=== PATIENT | female | born 1990 | race African-American/Black ===

== ENCOUNTER 2017-01-31 12:05 | Emergency (ER) | payer MEDICAID, OTHER ==
[~2017-01-31] VITALS: Ht 154.9 cm; Wt 82.0 kg
[2017-01-31] MEDS ORDERED: SODIUM CHLORIDE 0.9% 1,000 ML IV ONE (12:57)
[2017-01-31] MEDS ORDERED: ONDANSETRON 4MG ODT PO STA (12:57)
[2017-01-31] MEDS ORDERED: ACETAMINOPHEN 325MG TABLET PO ONE (13:15)
[2017-01-31 13:17] LABS: BASOPHILS % 0.8 % (0.0-2.0); EOSINOPHILS % 1.7 % (0.0-5.0); HEMATOCRIT. 39.7 % (36.0-48.0); HEMOGLOBIN. 13.1 g/dL (12.0-16.0); LYMPHOCYTES % 27.6 % (20.0-50.0); MEAN CORPUSCULAR HEMOGLOBIN 27.3 pg (28.0-32.0); MEAN CORPUSCULAR VOLUME 82.8 fL (81.0-99.0); MEAN PLATELET VOLUME 8.3 fl (7.4-10.4); NEUTROPHILS % 61.9 % (40.0-76.0); PLATELET 224 x1000/uL (130-400); RED CELL DISTRIBUTION WIDTH 12.5 % (11.6-14.6)
[2017-01-31 13:36] LABS: CARBON DIOXIDE 30 mEq/L (21-32); CHLORIDE 106 mEq/L (98-107)
[2017-01-31 13:45] LABS: B-HCG QUANTITATIVE 1615 mIU/mL (<3)
[2017-01-31 16:55] VITALS: BP 138/99
== END 2017-01-31 17:00 | disposition home or self-care (01) ==
LOC: ER 12:37
DX: O20.0 Threatened abortion (principal); O21.9 Vomiting of pregnancy, unspecified; R51 Headache; Z3A.01 Less than 8 weeks gestation of pregnancy
CPT/HCPCS: 36415; 76801; 76817; 80048; 84702; 85025; 86850; 86900; 86901; 96360; 96361; 99285; Q0162; Z7610; J7030

== ENCOUNTER 2017-02-01 08:07 | Emergency (ER) | payer MEDICAID, OTHER ==
[~2017-02-01] VITALS: Ht 157.5 cm; Wt 82.2 kg
[2017-02-01 09:04] LABS: GLUCOSE URINE NEGATIVE (NEGATIVE); KETONES URINE NEGATIVE (NEGATIVE); LEUKOCYTE ESTERASE URINE NEGATIVE (NEGATIVE); NITRITE URINE NEGATIVE (NEGATIVE); OCCULT BLOOD URINE 3+ (NEGATIVE); PROTEIN URINE NEGATIVE (NEGATIVE); SPECIFIC GRAVITY URINE 1.009 (1.005-1.030); UROBILINOGEN URINE 0.2 E.U./dL (0.2-1.0)
[2017-02-01 09:07] LABS: CLARITY URINE CLEAR (CLEAR); COLOR URINE YELLOW (YELLOW)
[2017-02-01] MEDS ORDERED: ACETAMINOPHEN 500MG TABLET PO ONE (09:15)
[2017-02-01 09:17] LABS: BASOPHILS % 0.7 % (0.0-2.0); EOSINOPHILS % 2.3 % (0.0-5.0); HEMOGLOBIN. 12.3 g/dL (12.0-16.0); LYMPHOCYTES % 25.6 % (20.0-50.0); MEAN CORPUSCULAR VOLUME 83.7 fL (81.0-99.0); MEAN PLATELET VOLUME 8.8 fl (7.4-10.4); MONOCYTES % 6.7 % (2.0-8.0); NEUTROPHILS % 64.7 % (40.0-76.0); PLATELET 199 x1000/uL (130-400); RED BLOOD CELL COUNT 4.54 mill/uL (4.2-5.4); RED CELL DISTRIBUTION WIDTH 12.6 % (11.6-14.6)
[2017-02-01 09:26] LABS: CARBON DIOXIDE 28 mEq/L (21-32); CHLORIDE 106 mEq/L (98-107)
[2017-02-01 09:32] LABS: B-HCG QUANTITATIVE 616 mIU/mL (<3)
[2017-02-01 11:00] VITALS: BP 135/90
== END 2017-02-01 11:20 | disposition home or self-care (01) ==
LOC: ER 08:30
DX: O03.9 Complete or unspecified spontaneous abortion without complication (principal); O16.1 Unspecified maternal hypertension, first trimester; Z3A.01 Less than 8 weeks gestation of pregnancy
CPT/HCPCS: 36415; 80048; 81001; 81025; 84702; 85025; 86850; 86900; 99284

== ENCOUNTER 2017-02-12 12:02 | Emergency (ER) | payer MEDICAID, OTHER ==
[~2017-02-12] VITALS: Ht 154.9 cm; Wt 76.0 kg
[2017-02-12] MEDS ORDERED: ACETAMINOPHEN 325MG TABLET PO STA (12:28)
[2017-02-12] MEDS ORDERED: ONDANSETRON 4MG ODT PO ONE (12:30)
[2017-02-12 12:45] LABS: BASOPHILS % 0.7 % (0.0-2.0); EOSINOPHILS % 0.9 % (0.0-5.0); HEMATOCRIT. 40.3 % (36.0-48.0); HEMOGLOBIN. 13.2 g/dL (12.0-16.0); LYMPHOCYTES % 30.6 % (20.0-50.0); MEAN CORPUSCULAR HEMOGLOBIN 27.4 pg (28.0-32.0); MEAN PLATELET VOLUME 8.7 fl (7.4-10.4); MONOCYTES % 7.2 % (2.0-8.0); NEUTROPHILS % 60.6 % (40.0-76.0); PLATELET 241 x1000/uL (130-400); RED CELL DISTRIBUTION WIDTH 12.7 % (11.6-14.6)
[2017-02-12 12:53] LABS: HCG SCREEN INDETERMINATE
[2017-02-12 12:55] LABS: CARBON DIOXIDE 28 mEq/L (21-32); CHLORIDE 104 mEq/L (98-107)
[2017-02-12 14:00] VITALS: BP 146/98
== END 2017-02-12 15:28 | disposition home or self-care (01) ==
LOC: ER 12:03
DX: R10.9 Unspecified abdominal pain (principal); D25.9 Leiomyoma of uterus, unspecified; R11.2 Nausea with vomiting, unspecified; I10 Essential (primary) hypertension
CPT/HCPCS: 36415; 76830; 76856; 80048; 84702; 84703; 85025; 99285; Q0162; Z7610

== ENCOUNTER 2017-03-27 20:30 | Emergency (ER) | payer MEDICAID, OTHER ==
[~2017-03-27] VITALS: Ht 157.5 cm; Wt 64.0 kg
[2017-03-27 20:43] VITALS: BP 147/98
== END 2017-03-28 00:07 | disposition left against medical advice (07) ==
LOC: ER 20:30
DX: R10.9 Unspecified abdominal pain (principal); Z53.21 Procedure and treatment not carried out due to patient leaving prior to being seen by health care provider

== ENCOUNTER 2017-08-01 04:25 | Emergency (ER) | payer MEDICAID, OTHER ==
[~2017-08-01] VITALS: Ht 154.9 cm; Wt 80.0 kg
[2017-08-01 08:19] LABS: BASOPHILS % 0.6 % (0.0-2.0); EOSINOPHILS % 1.4 % (0.0-5.0); HEMATOCRIT. 38.9 % (36.0-48.0); HEMOGLOBIN. 12.8 g/dL (12.0-16.0); LYMPHOCYTES % 28.2 % (20.0-50.0); MEAN CORPUSCULAR HEMOGLOBIN 27.6 pg (28.0-32.0); MEAN CORPUSCULAR VOLUME 83.5 fL (81.0-99.0); MEAN PLATELET VOLUME 8.7 fl (7.4-10.4); MONOCYTES % 6.5 % (2.0-8.0); NEUTROPHILS % 63.3 % (40.0-76.0); PLATELET 231 x1000/uL (130-400); RED BLOOD CELL COUNT 4.66 mill/uL (4.2-5.4); RED CELL DISTRIBUTION WIDTH 12.5 % (11.6-14.6)
[2017-08-01 08:42] LABS: CARBON DIOXIDE 28 mEq/L (21-32); CHLORIDE 104 mEq/L (98-107)
[2017-08-01 08:49] LABS: B-HCG QUANTITATIVE 2194 mIU/mL (<3)
[2017-08-01 11:07] LABS: CLARITY URINE CLEAR (CLEAR); COLOR URINE DARK YELLOW (YELLOW); KETONES URINE TRACE (NEGATIVE); LEUKOCYTE ESTERASE URINE NEGATIVE (NEGATIVE); NITRITE URINE NEGATIVE (NEGATIVE); OCCULT BLOOD URINE NEGATIVE (NEGATIVE); PH URINE 6.5 (4.5-8.0); PROTEIN URINE TRACE (NEGATIVE); SPECIFIC GRAVITY URINE 1.029 (1.005-1.030)
[2017-08-01 11:45] VITALS: BP 135/98
[2017-08-01] MEDS: POTASSIUM CHLORIDE 10MEQ TABLET SR PO NR (12:11)
== END 2017-08-01 12:16 | disposition home or self-care (01) ==
LOC: ER 04:25
DX: O20.0 Threatened abortion (principal); Z3A.01 Less than 8 weeks gestation of pregnancy
CPT/HCPCS: 36415; 76801; 80053; 81001; 84702; 85025; 86850; 86900; 99285

== ENCOUNTER 2018-01-23 21:04 | Observation (INO) | payer MEDICAID ==
[~2018-01-23] VITALS: Ht 154.9 cm; Wt 81.6 kg
[2018-01-23] MEDS ORDERED: PREN1TAB33 PO (23:02)
== END 2018-01-23 23:38 | disposition home or self-care (01) ==
LOC: L&D 21:04
PROVIDERS: ADMIT Specialist; ATTEND Specialist
DX: O42.913 Preterm premature rupture of membranes, unspecified as to length of time between rupture and onset of labor, third trimester (principal); Z3A.31 31 weeks gestation of pregnancy
CPT/HCPCS: 76805; 76818; 99281; G0378

== ENCOUNTER 2018-01-24 18:41 | Observation (INO) | payer MEDICAID ==
[~2018-01-24] VITALS: Ht 154.9 cm; Wt 81.6 kg
[~2018-01-24 18:41] MED LIST: PREN1TAB33 PO
[2018-01-24 20:13] LABS: CLARITY URINE CLEAR (CLEAR); COLOR URINE YELLOW (YELLOW); KETONES URINE NEGATIVE (NEGATIVE); LEUKOCYTE ESTERASE URINE 3+ (NEGATIVE); NITRITE URINE NEGATIVE (NEGATIVE); OCCULT BLOOD URINE NEGATIVE (NEGATIVE); PH URINE 7.5 (4.5-8.0); PROTEIN URINE NEGATIVE (NEGATIVE); SPECIFIC GRAVITY URINE 1.005 (1.005-1.030)
[2018-01-24] MEDS ORDERED: ACETAMINOPHEN 500MG TABLET PO NR (21:00)
[2018-01-24] MEDS ORDERED: SODIUM CHLORIDE 0.9% 1,000 ML IV SCH (21:00)
[2018-01-24] MEDS ORDERED: CEFAZOLIN 2,000 MG in DEXT 5% WATER 100 ML IV NR (21:00)
== END 2018-01-24 23:00 | disposition home or self-care (01) ==
LOC: L&D 18:41
PROVIDERS: ADMIT Specialist; ATTEND Specialist
DX: O26.893 Other specified pregnancy related conditions, third trimester (principal); R10.30 Lower abdominal pain, unspecified; Z3A.30 30 weeks gestation of pregnancy
CPT/HCPCS: 81003; 96365; 99281; G0378; J0690; J7030; 96360; J7060

== ENCOUNTER 2018-02-22 22:48 | Observation (INO) | payer SELFPAY ==
[~2018-02-22] VITALS: Ht 154.9 cm; Wt 81.6 kg
[2018-02-23] MEDS ORDERED: LACTATED RINGERS 1,000 ML IV SCH (00:30)
== END 2018-02-23 02:45 | disposition home or self-care (01) ==
LOC: L&D 22:48
PROVIDERS: ADMIT Obstetrics & Gynecology; ATTEND Obstetrics & Gynecology
DX: O46.93 Antepartum hemorrhage, unspecified, third trimester (principal); Z3A.34 34 weeks gestation of pregnancy
CPT/HCPCS: 96360; 96361; 99281; G0378; J7120